=== PATIENT | female | born 2000 | race Caucasian/White ===

== ENCOUNTER 2019-07-22 15:14 | Outpatient (CLI) | payer BC ==
--- NOTE | 2019-07-22 15:52 | CT ---
Exam: CT brain PROVIDED CLINICAL HISTORY: Headache COMPARISON: None FINDINGS: The ventricular system is normal in size and morphology. No evidence for intracranial hemorrhage or mass effect. The extracranial soft tissues and osseous structures demonstrate no evidence for an acute abnormality. IMPRESSION: No evidence for intracranial hemorrhage or mass effect.
== END 2019-07-22 15:15 | disposition home or self-care (01) ==
LOC: SCSCT 15:14
DX: R51 Headache (principal)
CPT/HCPCS: 70450